=== PATIENT | female | born 1990 | race Caucasian/White ===

== ENCOUNTER 2016-07-05 22:43 | Emergency (ER) | payer MEDICAID ==
[~2016-07-05] VITALS: Ht 162.6 cm; Wt 97.7 kg
[2016-07-05 22:45] VITALS: BP 130/88; PULSE 96; RESP 16; O2SAT 98
--- NOTE | 2016-07-06 01:53 | ED.REPORT ---
HPI-Chest Pain Under 40 Date of Service July 06, 2016 ED Provider: Troy Esteban MD The pt is a 26 y/o female w/ a hx of a presenting to the ED complaining of chest pain onset 2100 yesterday. She also reports experiencing tunnel vision, throat swelling, the sensation of her heart beating out of her chest, "shakiness", bilat calf cramping, and brain "fuzziness". The chest pain radiates to her L arm, described as a pressure, worsens when shes relaxed, and gets better when she walks. She recently had a chest cold which traveled to her head roughly two weeks ago. Denies SOB, diaphoresis, nausea, or vomiting. She takes Excedrin for her migraines. Nursing Notes Stated Complaint: CHEST PAIN Chief Complaint: Chest Pain Nursing Notes Reviewed: Yes (Bix not reconciled) Allergies: Coded Allergies: No Known Allergies (Unverified , 07/05/16) Scheduled PRN Alprazolam (Alprazolam) 0.5 Mg Tablet 0.5 MG PO BID PRN PRN For Anxiety General Time Seen by MD: 01:51 Chief Complaint Chest pain Hx Obtained From: Patient Arrived By: Walk-in Sudden in Onset?: Yes Onset Occurred: 21 - 23 hours ago Recent Healthcare: No recent doctor visit, No recent hospitalization Similar Sx Previous: No Past Medical History Past Medical History None reported Past Surgical History Ambulatory Status Independent Review of Systems Tunnel vision, throat swelling, bilat calf cramping, brain "fuzziness", and a sensation of her heart beating out of her chest. Respiratory: Denies: Shortness of breath Cardiovascular: Reports: Chest pain GI: Denies: Nausea, Vomiting Musculoskeletal: Reports: Extremity pain (L arm ) Skin: Denies Diaphoresis Complete sys rev & neg: except as marked. Physical Exam Initial Vital Signs Vital Signs (First) Date Time Temp Pulse Resp B/P Pulse Ox O2 Delivery O2 Flow Rate FiO2 07/05/16 22:45 36.5 96 16 130/88 98 Room Air Initial VS: Reviewed, Vital signs normal Head / Eyes: Atraumatic, Normocephalic, PERRL ENT: Mucous membranes moist, Conjunctiva normal, No scleral icterus Neck: Supple, Non-tender, Full range of motion Abdomen / GI: Soft, Non-tender, No guarding, No rebound, No distention Back: No CVA tenderness Extremities: Vascular intact, Neuro intact, No swelling, No tenderness Skin: Warm, Dry, No cyanosis Neurologic: Alert, Oriented, Nonfocal General/Constitutional: Awake, Alert Respiratory / Chest: Atraumatic, Breath sounds NL, Breath sounds = bilat, No respiratory distress, No rales, No rhonchi, No wheezing Cardiovascular: Heart rate NL, Regular rhythm, Heart sounds NL Psychiatric: Affect NL, Mood NL Abnormal Mood/Affect: Positive: Anxious Interpretation & Diagnostics Lab Results Interpretation Result Diagram: 07/06/16 0215 Test 07/06/16 02:15 White Blood Count 6.4th/mm3 (3.8-10.1) Red Blood Count 4.36mil/mm3 (3.90-5.20) Hemoglobin 13.0g/dL (12.0-15.6) Hematocrit 38.0% (35.0-46.0) Mean Corpuscular Volume 87.2fL (81-100) Mean Corpuscular Hemoglobin 29.8pg (27.0-35.0) Mean Corpuscular Hemoglobin Concent 34.2% (32.0-37.0) Red Cell Distribution Width 12.6% (12.3-15.4) Platelet Count 271bil/L (150-400) Neutrophils (%) (Auto) 59.8% (40-74) Lymphocytes (%) (Auto) 31.6% (14-46) Monocytes (%) (Auto) 6.6% (4-12) Eosinophils (%) (Auto) 1.3% (0-5) Basophils (%) (Auto) 0.5% (0-3) Troponin T 0.010ug/L (0.0-0.011) Hold Garcia Top Tube Received (Received) Lab Results Interpretation: CBC normal Troponin negative ECG Interpretation ECG Interpretation: Normal sinus rhythm rate of 94, nonspecific ST-T wave changes, that are subtle, nondiagnostic, nonspecific. No prior EKG available for comparison in our EMR Time: 01:53 Interpreted by: ED physician X-Ray Chest Interpretation Chest Xray Interpretation: Slight scoliosis No acute disease View: Portable, 1 view Interpretation / Wet Read by: Wet read ED physician Re-Eval/Medical Decision Med Decision/Clinical Course This is a 26-year-old female who presents with some atypical chest discomfort since last night became concerned so came to the ED for further evaluation. She is worried that it felt kind of like a possible heart attack, and she is under lots of stress family is out of town. She has had no trauma, no fevers, no cough, no DVT or coronary risk factors. She does admit to a component of feeling anxious. She is PERC rule negative. She has no specific findings on EKG. Chest x-ray was negative for acute disease notable only for chronic scoliosis per my interpretation. Her blood work was normal with a normal troponin with greater than 18 hours of continuous symptoms. His reassured. I am not finding indication for additional testing. Routine precautions reviewed. The child course of some alprazolam is being provided for when necessary use. The patient's discharge in good condition. HEART score of 1 Source of Hx: Old records Re-Evaluation/Progress : Time of Eval: 02:59 Re-Evaluation/Progress Note: Pt rechecked. Informed pt of plan for treatment. Pt understands and agrees with plan for treatment. F/U instructions and RTER warnings given. All questions addressed. Differential Diagnosis: Positive: Chest pain, acute, Negative: Acute coronary syndrome, Acute myocardial infarct, Dysrhythmia, Esophageal rupture, Gun shot wound chest, Pneumomediastinum, Pneumonia, Pneumothorax, Pulmonary edema, Pulmonary embolism, Stab wound chest Counseled Regarding: Diagnosis, Need for follow-up, When/why to return to ED Discharge & Departure Primary Impression: Chest pain Chest pain type: unspecified Qualified Code: R07.9 - Chest pain, unspecified Disposition: Home Discharge Condition All VS Reviewed: Yes Condition: Stable Additional Instructions: 1. A dangerous cause of the chest discomfort was not identified. 2. Your tests in the emergency department which included an EKG, blood work, and chest x-ray did not reveal a heart attack or other dangerous cause. 3. Activities as tolerated. 4. You can take alprazolam 0.5 mg up to twice daily if needed to see if that helps with component of anxiety that might be contributing to the symptoms.: This medication does cause some drowsiness no driving for at least 4 hours after taking. 5. Return if new or worsening symptoms occur. 6. Few need a local primary care physician, follow-up with Dr. Yair Ayers. Referrals: NOPCP (PCP) Scribe Attestation Portions of this note were transcribed by Sly Mackey. I, Dr. Esteban personally performed the history, physical exam and medical decision-making; I reviewed and confirmed the accuracy of the information in the transcribed note. Signed by : Justina Burrell, 07/05/16 and 0235. Troy Esteban MD July 06, 2016 01:53 Sly Mackey July 06, 2016 02:35
[2016-07-06 02:26] LABS: BASOPHILS % (AUTO) 0.5 % (0-3); EOSINOPHILS % (AUTO) 1.3 % (0-5); MONOCYTES % (AUTO) 6.6 % (4-12); Mean Corpuscular Hemoglobin 29.8 pg (27.0-35.0); Mean Corpuscular Volume 87.2 fL (81-100); NEUTROPHILS % (AUTO) 59.8 % (40-74); Platelet Count 271 bil/L (150-400)
[2016-07-06 02:37] VITALS: BP 110/77; PULSE 74; RESP 16; O2SAT 100
[2016-07-06 02:47] LABS: TROPONIN T 0.01 ug/L (0.0-0.011)
[2016-07-06] MEDS ORDERED: ALPR0.5T8 PO (02:56)
[2016-07-06 03:03] LABS: Magnesium 2.3 mg/dL (1.6-2.6)
--- NOTE | 2016-07-06 09:29 | DRSVH ---
PROCEDURE: X-RAY CHEST ONE VIEW, PORTABLE ([id number]) INDICATIONS: CP TECHNIQUE: One view of the chest was acquired. COMPARISON: None. FINDINGS: Surgical changes and devices: None. Lungs and pleura: No pleural effusions or pneumothorax. Lungs are clear. Mediastinum: Mediastinal contours appear normal. Heart size is normal. Bones and chest wall: No suspicious bony lesions. Overlying soft tissues appear unremarkable. IMPRESSION: No acute pulmonary process. Dictated by: Ting Diallo M.D. on 07/06/2016 at 9:27 Approved by: Ting Diallo M.D. on 07/06/2016 at 9:27
== END 2016-07-06 03:04 | disposition home or self-care (01) ==
LOC: SED 22:43
DX: R07.89 Other chest pain (principal)